=== PATIENT | female | born 1965 | race African-American/Black ===

== ENCOUNTER 2020-11-27 20:36 | Inpatient (IN) | payer OTHER ==
[~2020-11-27] VITALS: Ht 160 cm; Wt 93.0 kg
[~2020-11-27 20:36] MED LIST: NOCURR
[2020-11-27] MEDS ORDERED: [UNRECOGNIZED DRUG - REMARK] IT (20:50)
[2020-11-27] MEDS ORDERED: SODIUM CHLORIDE 0.9% 2,300 ML IV ONE (21:15)
[2020-11-27] MEDS ORDERED: ACETAMINOPHEN 500 MG TABLET PO ONE (21:15)
[2020-11-27 22:17] LABS: HEMATOCRIT 22.4 % (36-46); HEMOGLOBIN 7.6 g/dL (12.0-16.0); MEAN CORPUSCULAR HEMOGLOBIN 31.4 pg (26.0-34.0); MEAN CORPUSCULAR HGB CONC 33.9 G/dL (31.0-37.0); MEAN CORPUSCULAR VOLUME 93 fL (80-100); RED BLOOD CELL COUNT(AUTO) 2.42 MIL/uL (4.00-5.20)
[2020-11-27 22:32] LABS: INR 1.2 (0.9-1.1); PROTHROMBIN TIME 12.5 SEC (9.4-11.6)
[2020-11-27 22:36] LABS: LACTIC ACID 1.3 mmol/L (0.4-2.0)
[2020-11-27 22:40] LABS: ANION GAP 11 mmol/L (8-16); CALCIUM, TOTAL 8.5 mg/dL (8.8-10.5); CARBON DIOXIDE 27 mmol/L (22-29); CHLORIDE 98 mmol/L (98-107); CREATININE 0.99 mg/dL (0.60-1.30); GLOMERULAR FILTR. RATE CALC > 60 mL/min (>60); GLUCOSE,RANDOM 139 mg/dL (70-110); POTASSIUM 3.2 mmol/L (3.5-5.1); SODIUM SERUM 136 mmol/L (136-145); UREA NITROGEN, BLOOD 18 mg/dL (7-18)
[2020-11-27 22:43] LABS: ALANINE AMINOTRANSFERASE 27 U/L (12-78); ALBUMIN 3.4 g/dL (3.4-5.0); ALKALINE PHOSPHATASE 87 U/L (46-116); ASPARTATE AMINOTRANSFERASE 11 U/L (15-37); BILIRUBIN,TOTAL 1.2 mg/dL (0.1-1.0); CREATINE KINASE, TOTAL ONLY 25 U/L (26-192); TOTAL PROTEIN, SERUM 7.6 g/dL (6.4-8.2)
[2020-11-27] MEDS ORDERED: PIPERACILLIN/TAZO 3.375 GM/D5W 50 ML IV ONE (22:45)
[2020-11-27] MEDS ORDERED: ONDANSETRON HCL 4 MG/2 ML VIAL IVP PRN ×2 (23:00)
[2020-11-27] MEDS ORDERED: ACETAMINOPHEN 325 MG TABLET PO PRN (23:00)
[2020-11-27] MEDS ORDERED: *CLINICAL-CEFEPIME DOSING CLINICAL ONE (23:00)
[2020-11-27 23:09] LABS: APPEARANCE,URINE CLOUDY (CLEAR); GLUCOSE, URINE (UA) NEGATIVE (NEGATIVE); KETONES,URINE TRACE mg/dL (NEGATIVE); LEUKOCYTE ESTERASE ,URINE TRACE (NEGATIVE); NITRATE,URINE NEGATIVE (NEGATIVE); OCCULT BLOOD,URINE NEGATIVE (NEGATIVE); PROTEIN,URINE POS 1+ (NEGATIVE); UROBILINOGEN,URINE 0.2 mg/dL (<=1.0)
[2020-11-27 23:13] LABS: BILIRUBIN,URINE PRELIM. POSITIVE (NEGATIVE)
[2020-11-27 23:26] LABS: PATHOLOGY REVIEW, DIFF YES; PLATELET COUNT (AUTO) 40 K/uL (150-450)
[2020-11-27 23:28] LABS: BUFFY COAT SMEAR PREP YES (NOT DONE)
[2020-11-27 23:39] LABS: COVID AG,FIA SOURCE NASOPHARYNGEAL
[2020-11-28] MEDS: SODIUM CHLORIDE 0.9% 1,000 ML IV SCH ×5 (00:13→20:25)
[2020-11-28] MEDS: CEFEPIME HCL 2 GM in DEXTROSE 5%-WATER 50 ML IV SCH ×4 (00:13→23:42)
[2020-11-28 00:17] LABS: BACTERIA,URINE Few /HPF (None Seen); RBC,URINE 0-2 /HPF (0-2)
[2020-11-28 00:18] LABS: SQUAMOUS EPITHELIAL CELL,UR Rare /LPF (None Seen)
[2020-11-28] MEDS: ACETAMINOPHEN 325 MG TABLET PO PRN (07:41)
[2020-11-28] MEDS: POTASSIUM CHLORIDE 20 MEQ ER TABLET PO PRN ×2 (08:46→17:45)
[2020-11-28 09:23] VITALS: BP 98/53
[2020-11-28 11:41] VITALS: BP 107/64
[2020-11-28] MEDS: DOCUSATE SODIUM 100 MG CAPSULE PO SCH ×2 (11:45→20:22)
[2020-11-28] MEDS: PANTOPRAZOLE SODIUM 40 MG DR TABLET PO SCH (11:45)
[2020-11-28 12:07] LABS: BAND NEUTROPHILS % (MANUAL) 8 % (0-5); LYMPHOCYTES % (MANUAL) 71 % (22-44); MONOCYTES % (MANUAL) 8 % (2-9); REACTIVE LYMPHOCYTES 4 % (0-0); SEGMENTED NEUTROPHILS % 9 % (40-70)
[2020-11-28 12:08] LABS: BASOPHILS % (MANUAL) 0 % (0-2); BLASTS, MANUAL % 0 (0-0); EOSINOPHILS % (MANUAL) 0 % (1-6); METAMYELOCYTES % 0 % (0-0); MYELOCYTES % 0 % (0-0); OTHER CELLS,MANUAL % 0 (0-0); PROMYELOCYTES % 0 (0-0)
[2020-11-28 13:58] LABS: POTASSIUM 3.2 mmol/L (3.5-5.1)
[2020-11-28] MEDS: HYDROCODONE/ACETAMINOPHEN 5-325 MG TABLET PO PRN (15:02)
[2020-11-28] MEDS: FILGRASTIM 300 MCG/0.5 ML SYRINGE SQ SCH (15:11)
[2020-11-28 15:29] LABS: C-REACTIVE PROTEIN QUANT 11.84 mg/dL (0.00-0.30)
[2020-11-28 15:37] VITALS: BP 110/60
[2020-11-28 19:51] VITALS: BP 101/52
[2020-11-29] VITALS (18 sets, daily range): BP systolic 95–126; BP diastolic 46–69
[2020-11-29] MEDS: HYDROCODONE/ACETAMINOPHEN 5-325 MG TABLET PO PRN ×2 (01:44→19:58)
[2020-11-29] MEDS: SODIUM CHLORIDE 0.9% 1,000 ML IV SCH ×3 (05:23→19:57)
[2020-11-29 06:16] LABS: MEAN CORPUSCULAR HEMOGLOBIN 31.5 pg (26.0-34.0); MEAN CORPUSCULAR VOLUME 93 fL (80-100); PLATELET COUNT (AUTO) 23 K/uL (150-450); RED BLOOD CELL COUNT(AUTO) 1.86 MIL/uL (4.00-5.20); RED CELL DISTRIBUTION WIDTH 17.3 % (11.5-14.5)
[2020-11-29 06:33] LABS: ANION GAP 5 mmol/L (8-16); CALCIUM, TOTAL 7.5 mg/dL (8.8-10.5); CARBON DIOXIDE 25 mmol/L (22-29); CHLORIDE 108 mmol/L (98-107); GLOMERULAR FILTR. RATE CALC > 60 mL/min (>60); GLUCOSE,RANDOM 96 mg/dL (70-110); POTASSIUM 3.5 mmol/L (3.5-5.1); SODIUM SERUM 138 mmol/L (136-145); UREA NITROGEN, BLOOD 8 mg/dL (7-18)
[2020-11-29 07:02] LABS: HEMOGLOBIN 5.9 g/dL (12.0-16.0)
[2020-11-29 07:03] LABS: HEMATOCRIT 17.3 % (36-46)
[2020-11-29 07:39] LABS: BAND NEUTROPHILS % (MANUAL) 12 % (0-5); LYMPHOCYTES % (MANUAL) 25 % (22-44); MONOCYTES % (MANUAL) 1 % (2-9); SEGMENTED NEUTROPHILS % 62 % (40-70)
[2020-11-29] MEDS: FILGRASTIM 300 MCG/0.5 ML SYRINGE SQ SCH (08:22)
[2020-11-29] MEDS: PANTOPRAZOLE SODIUM 40 MG DR TABLET PO SCH (08:22)
[2020-11-29] MEDS: DOCUSATE SODIUM 100 MG CAPSULE PO SCH ×2 (08:22→21:00)
[2020-11-29] MEDS: CEFEPIME HCL 2 GM in DEXTROSE 5%-WATER 50 ML IV SCH ×2 (08:22→16:03)
[2020-11-29] MEDS ORDERED: SODIUM CHLORIDE 0.9% 250 ML IV ONE (10:04)
[2020-11-29] MEDS: ACETAMINOPHEN 325 MG TABLET PO PRN (15:49)
[2020-11-30] VITALS (7 sets, daily range): BP systolic 98–118; BP diastolic 43–70
[2020-11-30] MEDS: CEFEPIME HCL 2 GM in DEXTROSE 5%-WATER 50 ML IV SCH ×3 (00:55→15:49)
[2020-11-30 06:43] LABS: HEMOGLOBIN 8.7 g/dL (12.0-16.0); MEAN CORPUSCULAR HEMOGLOBIN 32.1 pg (26.0-34.0); MEAN CORPUSCULAR HGB CONC 34.7 G/dL (31.0-37.0); MEAN CORPUSCULAR VOLUME 93 fL (80-100); PLATELET COUNT (AUTO) 20 K/uL (150-450); RED CELL DISTRIBUTION WIDTH 15.5 % (11.5-14.5)
[2020-11-30] MEDS: PANTOPRAZOLE SODIUM 40 MG DR TABLET PO SCH (08:31)
[2020-11-30] MEDS: DOCUSATE SODIUM 100 MG CAPSULE PO SCH ×2 (08:43→20:01)
[2020-11-30 08:51] LABS: BAND NEUTROPHILS % (MANUAL) 13 % (0-5); LYMPHOCYTES % (MANUAL) 23 % (22-44); SEGMENTED NEUTROPHILS % 64 % (40-70)
[2020-11-30] MEDS ORDERED: SODIUM CHLORIDE 0.9% 250 ML IV ONE (15:46)
[2020-11-30] MEDS: HYDROCODONE/ACETAMINOPHEN 5-325 MG TABLET PO PRN (20:03)
[2020-12-01] MEDS: CEFEPIME HCL 2 GM in DEXTROSE 5%-WATER 50 ML IV SCH ×3 (00:14→16:08)
[2020-12-01] MEDS: HYDROCODONE/ACETAMINOPHEN 5-325 MG TABLET PO PRN ×2 (04:40→19:48)
[2020-12-01 05:33] VITALS: BP 103/57
[2020-12-01 06:31] LABS: HEMATOCRIT 24.2 % (36-46); HEMOGLOBIN 8.2 g/dL (12.0-16.0); MEAN CORPUSCULAR HEMOGLOBIN 31.4 pg (26.0-34.0); MEAN CORPUSCULAR VOLUME 93 fL (80-100); RED BLOOD CELL COUNT(AUTO) 2.61 MIL/uL (4.00-5.20); RED CELL DISTRIBUTION WIDTH 16.2 % (11.5-14.5)
[2020-12-01 06:50] LABS: PLATELET COUNT (AUTO) 17 K/uL (150-450)
[2020-12-01 06:55] LABS: ALANINE AMINOTRANSFERASE 25 U/L (12-78); ALBUMIN 2.8 g/dL (3.4-5.0); ALKALINE PHOSPHATASE 85 U/L (46-116); ANION GAP 7 mmol/L (8-16); ASPARTATE AMINOTRANSFERASE 12 U/L (15-37); BILIRUBIN,TOTAL 0.6 mg/dL (0.1-1.0); CALCIUM, TOTAL 7.9 mg/dL (8.8-10.5); CARBON DIOXIDE 27 mmol/L (22-29); CHLORIDE 104 mmol/L (98-107); CREATININE 0.75 mg/dL (0.60-1.30); GLOMERULAR FILTR. RATE CALC > 60 mL/min (>60); GLUCOSE,RANDOM 90 mg/dL (70-110); SODIUM SERUM 138 mmol/L (136-145); TOTAL PROTEIN, SERUM 6.6 g/dL (6.4-8.2); UREA NITROGEN, BLOOD 8 mg/dL (7-18)
[2020-12-01 07:16] LABS: POTASSIUM 2.8 mmol/L (3.5-5.1)
[2020-12-01 07:45] LABS: BAND NEUTROPHILS % (MANUAL) 14 % (0-5); LYMPHOCYTES % (MANUAL) 24 % (22-44); MONOCYTES % (MANUAL) 1 % (2-9); SEGMENTED NEUTROPHILS % 61 % (40-70)
[2020-12-01] MEDS: DOCUSATE SODIUM 100 MG CAPSULE PO SCH ×2 (08:04→19:47)
[2020-12-01] MEDS: PANTOPRAZOLE SODIUM 40 MG DR TABLET PO SCH (08:04)
[2020-12-01 08:14] VITALS: BP 118/65
[2020-12-01] MEDS ORDERED: SODIUM CHLORIDE 0.9% 500 ML IV ONE ×2 (09:09→14:05)
[2020-12-01] MEDS: POTASSIUM CHL 10 MEQ/WATER 50 ML IV PRN ×4 (09:56→18:42)
[2020-12-01] MEDS: FOLIC ACID 1 MG TABLET PO SCH (12:09)
[2020-12-01] MEDS: MULTIVITAMINS WITH MINERALS, THERAPEUTIC TABLET PO SCH (12:09)
[2020-12-01 16:15] VITALS: BP 112/47
[2020-12-01 19:36] VITALS: BP 109/47
[2020-12-02 01:16] LABS: HEMATOCRIT 25.1 % (36-46); HEMOGLOBIN 8.6 g/dL (12.0-16.0); MEAN CORPUSCULAR HEMOGLOBIN 31.6 pg (26.0-34.0); MEAN CORPUSCULAR HGB CONC 34.3 G/dL (31.0-37.0); MEAN CORPUSCULAR VOLUME 92 fL (80-100); RED BLOOD CELL COUNT(AUTO) 2.73 MIL/uL (4.00-5.20); RED CELL DISTRIBUTION WIDTH 16.4 % (11.5-14.5)
[2020-12-02 01:26] LABS: PLATELET COUNT (AUTO) 15 K/uL (150-450)
[2020-12-02 01:29] LABS: BAND NEUTROPHILS % (MANUAL) 11 % (0-5); LYMPHOCYTES % (MANUAL) 22 % (22-44); MONOCYTES % (MANUAL) 12 % (2-9); SEGMENTED NEUTROPHILS % 55 % (40-70)
[2020-12-02] MEDS: POTASSIUM CHLORIDE 20 MEQ ER TABLET PO PRN ×2 (01:45→09:58)
[2020-12-02 03:15] VITALS: BP 113/65
[2020-12-02 08:00] VITALS: BP 112/62
[2020-12-02] MEDS: FOLIC ACID 1 MG TABLET PO SCH (08:00)
[2020-12-02] MEDS: DOCUSATE SODIUM 100 MG CAPSULE PO SCH ×2 (08:00→20:16)
[2020-12-02] MEDS: MULTIVITAMINS WITH MINERALS, THERAPEUTIC TABLET PO SCH (08:00)
[2020-12-02] MEDS: PANTOPRAZOLE SODIUM 40 MG DR TABLET PO SCH (08:00)
[2020-12-02] MEDS: HYDROCODONE/ACETAMINOPHEN 5-325 MG TABLET PO PRN ×2 (12:50→20:24)
[2020-12-02 15:15] VITALS: BP 110/62
[2020-12-02 20:08] VITALS: BP 106/55
[2020-12-02 23:55] VITALS: BP 124/64
[2020-12-03] MEDS: HYDROCODONE/ACETAMINOPHEN 5-325 MG TABLET PO PRN ×3 (00:16→19:59)
[2020-12-03 04:12] VITALS: BP 113/53
[2020-12-03 07:23] LABS: HEMATOCRIT 25.8 % (36-46); HEMOGLOBIN 8.8 g/dL (12.0-16.0); MEAN CORPUSCULAR HEMOGLOBIN 31.6 pg (26.0-34.0); MEAN CORPUSCULAR HGB CONC 33.9 G/dL (31.0-37.0); MEAN CORPUSCULAR VOLUME 93 fL (80-100); RED BLOOD CELL COUNT(AUTO) 2.78 MIL/uL (4.00-5.20); RED CELL DISTRIBUTION WIDTH 16.1 % (11.5-14.5)
[2020-12-03 07:27] LABS: PLATELET COUNT (AUTO) 12 K/uL (150-450)
[2020-12-03 08:05] VITALS: BP 104/61
[2020-12-03 08:19] LABS: BAND NEUTROPHILS % (MANUAL) 5 % (0-5); LYMPHOCYTES % (MANUAL) 37 % (22-44); MONOCYTES % (MANUAL) 6 % (2-9); SEGMENTED NEUTROPHILS % 52 % (40-70)
[2020-12-03] MEDS: MULTIVITAMINS WITH MINERALS, THERAPEUTIC TABLET PO SCH (08:47)
[2020-12-03] MEDS: DOCUSATE SODIUM 100 MG CAPSULE PO SCH ×2 (08:47→19:58)
[2020-12-03] MEDS: FOLIC ACID 1 MG TABLET PO SCH (08:47)
[2020-12-03] MEDS: FILGRASTIM 300 MCG/0.5 ML SYRINGE SQ SCH (10:26)
[2020-12-03 15:35] VITALS: BP 98/64
[2020-12-04] MEDS: ACETAMINOPHEN 325 MG TABLET PO PRN (02:19)
[2020-12-04 04:39] VITALS: BP 113/63
[2020-12-04] MEDS: HYDROCODONE/ACETAMINOPHEN 5-325 MG TABLET PO PRN ×2 (05:05→18:00)
[2020-12-04 07:29] LABS: HEMATOCRIT 25.2 % (36-46); HEMOGLOBIN 8.6 g/dL (12.0-16.0); MEAN CORPUSCULAR HEMOGLOBIN 31.7 pg (26.0-34.0); MEAN CORPUSCULAR HGB CONC 34.3 G/dL (31.0-37.0); MEAN CORPUSCULAR VOLUME 92 fL (80-100); RED BLOOD CELL COUNT(AUTO) 2.73 MIL/uL (4.00-5.20); RED CELL DISTRIBUTION WIDTH 16.1 % (11.5-14.5)
[2020-12-04 08:00] VITALS: BP 117/64
[2020-12-04 08:02] LABS: PLATELET COUNT (AUTO) 10 K/uL (150-450)
[2020-12-04] MEDS: FILGRASTIM 300 MCG/0.5 ML SYRINGE SQ SCH (08:36)
[2020-12-04] MEDS: MULTIVITAMINS WITH MINERALS, THERAPEUTIC TABLET PO SCH (08:36)
[2020-12-04] MEDS: DOCUSATE SODIUM 100 MG CAPSULE PO SCH ×2 (08:36→20:00)
[2020-12-04] MEDS: FOLIC ACID 1 MG TABLET PO SCH (08:36)
[2020-12-04 08:38] LABS: BAND NEUTROPHILS % (MANUAL) 8 % (0-5); LYMPHOCYTES % (MANUAL) 8 % (22-44); MONOCYTES % (MANUAL) 7 % (2-9); SEGMENTED NEUTROPHILS % 77 % (40-70)
[2020-12-04 15:54] VITALS: BP 112/64
[2020-12-04 19:39] VITALS: BP 109/66
[2020-12-05] MEDS: HYDROCODONE/ACETAMINOPHEN 5-325 MG TABLET PO PRN (02:56)
[2020-12-05 04:35] VITALS: BP 116/62
[2020-12-05 06:39] LABS: BASOPHILS % (AUTO) 0.2 % (0.0-2.0); EOSINOPHILS % (AUTO) 0 % (1.0-6.0); HEMATOCRIT 24.3 % (36-46); HEMOGLOBIN 8.4 g/dL (12.0-16.0); LYMPHOCYTES # (AUTO) 1.2 K/uL (1.0-4.8); LYMPHOCYTES % (AUTO) 7.9 % (22.0-44.0); MEAN CORPUSCULAR HEMOGLOBIN 31.6 pg (26.0-34.0); MEAN CORPUSCULAR HGB CONC 34.4 G/dL (31.0-37.0); MEAN CORPUSCULAR VOLUME 92 fL (80-100); MONOCYTES # (AUTO) 0.6 K/uL (0.1-1.0); MONOCYTES % (AUTO) 3.8 % (2.0-9.0); NEUTROPHILS # (AUTO) 13.6 K/uL (1.8-7.7); RED BLOOD CELL COUNT(AUTO) 2.64 MIL/uL (4.00-5.20)
[2020-12-05 06:57] LABS: NEUTROPHILS % (AUTO) 88.1 % (40.0-70.0); PLATELET COUNT (AUTO) 10 K/uL (150-450)
[2020-12-05 07:58] VITALS: BP 127/69
[2020-12-05] MEDS: MULTIVITAMINS WITH MINERALS, THERAPEUTIC TABLET PO SCH (08:04)
[2020-12-05] MEDS: FOLIC ACID 1 MG TABLET PO SCH (08:04)
[2020-12-05] MEDS: DOCUSATE SODIUM 100 MG CAPSULE PO SCH (08:11)
[2020-12-05] MEDS ORDERED: FOLI-130 PO (08:25)
== END 2020-12-05 10:35 | disposition home or self-care (01) | DRG 720 ==
LOC: EMS 20:38 → 5S 11-28 08:22 → 6N 11-30 15:35
PROVIDERS: ADMIT Internal Medicine; ATTEND Internal Medicine
PROC: 30233N1 Transfusion of Nonautologous Red Blood Cells into Peripheral Vein, Percutaneous Approach (ICD-10-PCS; principal; 2020-11-29)
DX: A41.9 Sepsis, unspecified organism (principal); D61.818 Other pancytopenia; E44.0 Moderate protein-calorie malnutrition; C79.60 Secondary malignant neoplasm of unspecified ovary; D70.9 Neutropenia, unspecified; D63.8 Anemia in other chronic diseases classified elsewhere; R50.81 Fever presenting with conditions classified elsewhere; Z20.822 Contact with and (suspected) exposure to COVID-19; C80.1 Malignant (primary) neoplasm, unspecified; E87.6 Hypokalemia; E66.9 Obesity, unspecified; Z68.36 Body mass index [BMI] 36.0-36.9, adult
CPT/HCPCS: 51702; 71045; 80048; 80053; 81001; 82550; 83605; 84132; 84145; 84295; 84484; 85009; 85025; 85049; 85610; 85730; 86140; 86850; 86900; 86901; 86923; 87040; 87081; 87086; 93005; 93970; 99291; G0378; J0692; J2405; J2543; J3480; J7030; J7040; J7050; J7060; P9016; Q9967; 36415-L1; 36415-TC